=== PATIENT | male | born 1960 | race African-American/Black ===

== ENCOUNTER 2019-08-05 13:55 | Emergency (ER) | payer MEDICAID ==
[~2019-08-05] VITALS: Ht 154.9 cm; Wt 54.4 kg
[2019-08-05 14:01] VITALS: BP 151/88
[2019-08-05 15:21] LABS: ANION GAP 9 mmol/L (5-15); BLOOD UREA NITROGEN 12 mg/dL (7-18); CALCIUM 9.3 MG/DL (8.5-10.1); CARBON DIOXIDE 32 MMOL/L (21-32); CHLORIDE 103 MMOL/L (98-107); CREATININE 0.9 MG/DL (0.55-1.30); POTASSIUM 4.3 MMOL/L (3.5-5.1); SODIUM 144 MMOL/L (136-145)
--- NOTE | 2019-08-05 15:21 | Diagnostic Imaging Report ---
Indication: Chest pain Technique: One view of the chest Comparison: none Findings: Lungs and pleural spaces are clear. Heart size is normal Impression: No acute process
[2019-08-05 15:22] LABS: HEMATOCRIT 50.4 % (42.0-52.0); HEMOGLOBIN 16.8 G/DL (14.2-18.0); MEAN CORPUSCULAR VOLUME 91 FL (80-99); PLATELET COUNT 217 K/UL (150-450); RED BLOOD COUNT 5.56 M/UL (4.70-6.10); RED CELL DISTRIBUTION WIDTH 11.2 % (11.6-14.8); WHITE BLOOD COUNT 5.4 K/UL (4.8-10.8)
[2019-08-05 15:25] LABS: BILIRUBIN, URINE NEGATIVE (NEGATIVE); GLUCOSE, URINE (UA) NEGATIVE (NEGATIVE); KETONES,URINE NEGATIVE (NEGATIVE); LEUKOCYTE ESTERASE ,URINE 1+ (NEGATIVE); NITRITE,URINE NEGATIVE (NEGATIVE); PH,URINE 6 (4.5-8.0); PROTEIN,URINE 1+ (NEGATIVE); UROBILINOGEN,URINE NORMAL MG/DL (0.0-1.0)
[2019-08-05 15:26] LABS: ALANINE AMINOTRANSFERASE 32 U/L (12-78); ALBUMIN/GLOBULIN RATIO 0.9 (1.0-2.7); ALKALINE PHOSPHATASE 54 U/L (46-116); APPEARANCE,URINE CLEAR; ASPARTATE AMINO TRANSFERASE 19 U/L (15-37); BILIRUBIN,TOTAL 0.6 MG/DL (0.2-1.0); COLOR,URINE YELLOW
--- NOTE | 2019-08-05 15:26 | NUR ---
ED Nurse Note: pt states he is here for a check up ermd eval done blood and urine sent will monitor.
[2019-08-05] MEDS ORDERED: CEPHALEXIN500 MG ORAL (15:52)
--- NOTE | 2019-08-05 15:52 | Emergency Room Report ---
History of Present Illness General Chief Complaint: General Complaint Source: Patient Present Illness HPI 58-year-old male with no significant past medical history who has not been to a medical doctor for many years here requesting a complete blood work. Patient also reports that for the past week he has been having intermittent chest pain without any radiation to arm or jaw. Denies shortness of breath, palpitation. Denies headache and dizziness, blurry vision. Patient appears to have elevated blood pressure of 150/1 100s upon arrival however denies associated symptoms. Denies history of elevated blood pressure and diabetes. Has not taken medication for symptom relief. Patient is sitting stable with stable vital signs. Denies abdominal pain, nausea or vomiting. No motor or sensory deficits noted. Allergies: Coded Allergies: No Known Allergies (Unverified , 08/05/19) Patient History Past Medical History: see triage record Past Surgical History: unable to obtain Pertinent Family History: none Immunizations: UTD Reviewed Nursing Documentation: PMH: Agreed; PSxH: Agreed Nursing Documentation-PMH Past Medical History: No Stated History Review of Systems All Other Systems: negative except mentioned in HPI Physical Exam Vital Signs Date Time Temp Pulse Resp B/P (MAP) Pulse Ox O2 Delivery O2 Flow Rate FiO2 08/05/19 14:01 98.2 62 18 151/88 (109) 95 Room Air Sp02 EP Interpretation: reviewed, normal General Appearance: no apparent distress, alert, GCS 15, non-toxic Head: normocephalic, atraumatic Eyes: bilateral eye normal inspection, bilateral eye PERRL ENT: hearing grossly normal, normal pharynx, no angioedema, normal voice Neck: full range of motion, supple, supple/symm/no masses Respiratory: chest non-tender, lungs clear, normal breath sounds, no rhonchi, no respiratory distress, no wheezing, speaking full sentences Cardiovascular #1: regular rate, rhythm, no edema, no murmur, normal capillary refill Cardiovascular #2: 2+ radial (R), 2+ radial (L) Gastrointestinal: normal bowel sounds, non tender, soft, non-distended, no guarding, no rebound Genitourinary: normal inspection, no CVA tenderness Musculoskeletal: back normal, gait/station normal, normal range of motion, non- tender, no calf tenderness Neurologic: alert, oriented x3, responsive, motor strength/tone normal, sensory intact, speech normal Psychiatric: judgement/insight normal, memory normal, mood/affect normal, no suicidal/homicidal ideation Skin: no rash Lymphatic: no adenopathy Medical Decision Making PA Attestation All diagnoses and treatment plans were reviewed and discussed with my supervising physician Dr. Coleman Diagnostic Impression: Primary Impression: Chest pain Additional Impression: UTI (urinary tract infection) ER Course 58-year-old male with no significant past medical history who has not been to a medical doctor for many years here requesting a complete blood work. Patient also reports that for the past week he has been having intermittent chest pain without any radiation to arm or jaw. Denies shortness of breath, palpitation. Denies headache and dizziness, blurry vision. Patient appears to have elevated blood pressure of 150/1 100s upon arrival however denies associated symptoms. Denies history of elevated blood pressure and diabetes. Has not taken medication for symptom relief. Patient is sitting stable with stable vital signs. Denies abdominal pain, nausea or vomiting. No motor or sensory deficits noted. Ddx considered but are not limited to: DC, Angina, COPD, GERD, unspecified chest pain Vital signs: are WNL, pt. is afebrile H&PE are most consistent with unspecified chest pain, incidental finding of UTI ORDERS: EKG, Chest XR, cardiac labs(troponin, CBC, CMP), Keflex ED INTERVENTIONS: None required at this time. DISCHARGE: At this time pt. is stable for d/c to home. Will provide printed patient care instructions, and any necessary prescriptions. Care plan and follow up instructions have been discussed with the patient prior to discharge. Patient to follow-up with her primary care provider. I explained to him that we do not do complete physical examination and needs to establish primary care. Also referral to [employer] negative continue to have chest pain. Also blood pressure management as needed. This is one reading of elevated blood pressure patient is asymptomatic blood pressure medication cannot be initiated today. EKG Diagnostic Results Rate: normal Rhythm: NSR ST Segments: no acute changes Other Impression No acute ST changes Other X-Ray Diagnostic Results Other X-Ray Diagnostic Results : # of Views/Limited Vs Complete: 1 View Indication: Pain EP Interpretation: Yes VANESSA Xray: Interpretation reviewed, by supervising MD, and agrees with findings. Interpretation: no dislocation, no soft tissue swelling, no fractures Impression: No acute disease Electronically Signed by: Ed Hernandez PA-C Last Vital Signs Date Time Temp Pulse Resp B/P (MAP) Pulse Ox O2 Delivery O2 Flow Rate FiO2 08/05/19 14:01 98.2 62 18 151/88 95 Room Air Disposition: HOME, SELF-CARE Condition: Stable Scripts Cephalexin* (KEFLEX*) 500 Mg Capsule 500 MG ORAL EVERY 6 HOURS for 7 Days, #28 CAP Prov: Ed Dye 08/05/19 Referrals: NOT CHOSEN IPA/,REFERRING (PCP) Patient Instructions: Nonspecific Chest Pain, [id number], Urinary Tract Infection, [id number] Additional Instructions: Follow-up with your primary care provider for complete blood work as well as further assessment of possible high blood pressure diagnosis. Take antibiotics as directed if worsening symptoms return to the emergency room Ed Dye Aug 05, 2019 15:51
[2019-08-05 16:08] VITALS: BP 144/71
--- NOTE | 2019-08-05 16:09 | NUR ---
ER DISCHARGE NOTE: Patient is cleared to be discharged per ERMD, pt is aox4, on room air, with stable vital signs. pt was given dc and prescription instructions, pt was able to verbalize understanding, pt id band removed without complications. pt is able to ambulate with steady gait. pt took all belongings.
== END 2019-08-05 16:09 | disposition home or self-care (01) ==
LOC: EMR 15:07
DX: R07.9 Chest pain, unspecified (principal); N39.0 Urinary tract infection, site not specified; R03.0 Elevated blood-pressure reading, without diagnosis of hypertension
CPT/HCPCS: 36415; 71045; 80053; 81001; 84484; 85007; 85025; 93005; Z7502; 99283